=== PATIENT | female | born 1960 | race Hispanic/Latino ===

== ENCOUNTER 2017-05-11 12:31 | Emergency (ER) | payer BC | END 2017-05-11 15:22 | disposition home or self-care (01) | LOC: EDH 12:31 | DX: M79.605 Pain in left leg (principal); I10 Essential (primary) hypertension | CPT/HCPCS: 93971 ==

== ENCOUNTER → 2019-05-09 | Outpatient (CLI) | payer BC | END | disposition home or self-care (01) | LOC: RAH 15:10 | PROVIDERS: ATTEND Internal Medicine Critical Care Medicine | DX: Z12.31 Encounter for screening mammogram for malignant neoplasm of breast (principal) | CPT/HCPCS: 77067 ==